=== PATIENT | female | born 1985 | race Caucasian/White ===

== ENCOUNTER 2018-04-05 12:39 | Emergency (ER) | payer OTHER ==
[2018-04-05 12:53] VITALS: BP 130/72; PULSE 60; TEMP 98.6; BMI 21.6
[2018-04-05] MEDS ORDERED: diphenhydrAMINE HCL 25 MG CAPSULE (FP) PO ONE ×2 (13:57→14:00)
--- NOTE | 2018-04-05 13:58 | PDOC ---
History of Present Illness - General Chief Complaint: Edema Stated Complaint: SWOLLEN LIP Time Seen by Provider: 04/05/18 13:09 History Source: Patient - History of Present Illness Initial Comments: 04/05/18 12:59 Patient came to emergency department for evaluation of swelling to her left upper lip. States was out last night at a barbecue, ate multiple foods which were not new to her except for at midnight she had some eggs which she has never had before. States after that time her lips swelled but no other areas. Denies history of herpes, denies any trauma, denies any dental injury or issue. Patient states used ice to the area which did not help resolved. Has taken no medications for relief. Denies shortness of breath, tongue swelling, a difficulty breathing or swallowing. Has no other food ALLERGIES Timing/Duration: unsure Severity: mild, moderate Associated Symptoms: reports: malaise. denies: cough, fever/chills Past History - Travel Traveled outside of the country in the last 30 days: No Close contact w/someone who was outside of country & ill: No - Past Medical History Allergies/Adverse Reactions: Allergies Allergy/AdvReac Type Severity Reaction Status Date / Time No Known Allergies Allergy Verified 04/05/18 13:20 Home Medications: Ambulatory Orders NK [No Known Home Medication] 04/05/18 COPD: No - Surgical History Abdominal Surgery: Yes - Suicide/Smoking/Psychosocial Hx Smoking History: Never smoked Have you smoked in the past 12 months: No Hx Alcohol Use: No Drug/Substance Use Hx: No Substance Use Type: None Review of Systems - Review of Systems Able to Perform ROS?: Yes Is the patient limited Lao proficient: Yes Constitutional: Yes: See HPI, Malaise. No: Symptoms Reported, Fever HEENTM: Yes: Symptoms Reported, See HPI, Nose Congestion, Mouth Swelling. No: Mouth Pain, Dental Problems, Difficulty Swallowing Respiratory: Yes: See HPI. No: Symptoms reported, Cough, Wheezing All Other Systems: Reviewed and Negative *Physical Exam - Vital Signs Last Vital Signs Temp Pulse Resp BP Pulse Ox 98.6 F 60 18 130/72 100 04/05/18 12:48 04/05/18 12:48 04/05/18 12:48 04/05/18 12:48 04/05/18 12:48 - Physical Exam General Appearance: Yes: Nourished, Appropriately Dressed, Apparent Distress HEENT: positive: HERNESTO, TMs Normal, Pharynx Normal, Other (left upper lip with erythema and swelling, no area of trauma/ecchymoses, puncture wound or evidence of insect bite. Is nontender to pressure or palpation. Dentition is intact without swelling abscess or decay to any tooth. Pharynx is clear with no tongue swelling or pharyngeal edema.) Neck: negative: Tender Respiratory/Chest: positive: Lungs Clear, Normal Breath Sounds. negative: Wheezing Gastrointestinal/Abdominal: positive: Soft. 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 Consider humidifier in room at night Steamy showers/seem to face break up mucus Avoid contact with allergens, exposure to pollens, close windows on a windy day Lots of handwashing and good hygiene Continue [id number] medications for symptomatic relief- may use allergic eyedrops for itching I Continue antihistamines daily until pollen season is over; Zyrtec, Claritin, Ethel during the daytime and Benadryl at nighttime as will make sleepy Tylenol or Motrin for fever and pain Followup with private physician in one to 2 days as needed Consider following up with an principal network architect/wet process miller for skin testing and possible allergy shots Return to emergency department for worsened symptoms, fevers, dehydration - Post Discharge Activity Forms/Work/School Notes: Back to Work
== END 2018-04-05 14:09 | disposition home or self-care (01) ==
LOC: JERFT 12:39 → JER 12:39 → JERFT 14:09
DX: T78.1XXA Other adverse food reactions, not elsewhere classified, initial encounter (principal)
CPT/HCPCS: 99281-25

== ENCOUNTER 2019-11-15 15:11 | Emergency (ER) | payer OTHER ==
[2019-11-15 15:25] VITALS: BP 120/69; PULSE 64; TEMP 98.2; BMI 21.6
--- NOTE | 2019-11-15 15:26 | PDOC ---
Rapid Medical Evaluation Medical Evaluation: Allergies Allergy/AdvReac Type Severity Reaction Status Date / Time No Known Allergies Allergy Verified 05/26/18 13:33 I have performed a brief in-person evaluation of this patient. The patient presents with a chief complaint of: CP x 1 week, constant in nature ; +dry cough x 2 days; denies fever, sob, smoking/drug use; denies use of OCPs Pertinent physical exam findings: +reproducible CP, lungs clear I have ordered the following: EKG, CXR The patient will proceed to the ED for further evaluation. 11/15/19 15:22
[2019-11-15] MEDS ORDERED: CYCLOBENZAPRINE HCL 10 MG TABLET (FP) PO ONE (17:39)
[2019-11-15] MEDS ORDERED: DEXAMETHASONE LIQUID 0.5 MG/5 ML PO ONE (17:39)
[2019-11-15] MEDS ORDERED: ALBUTEROL SO4 2.5/IPRATROPIUM 0.5 INH SOL 3 ML VIAL.NEB. NEB ONE ×2 (17:52→17:53)
[2019-11-15] MEDS ORDERED: CYCLOBENZAPRINE HCL 10 MG TABLET (FP) ONE (17:53)
[2019-11-15] MEDS ORDERED: DEXAMETHASONE SOD PHOSPHATE 10 MG/1 ML VIAL ONE (17:53)
--- NOTE | 2019-11-15 18:02 | PDOC ---
History of Present Illness - General Chief Complaint: Respiratory Stated Complaint: COUGH/CHEST PAIN Time Seen by Provider: 11/15/19 15:22 Past History - Past Medical History Allergies/Adverse Reactions: Allergies Allergy/AdvReac Type Severity Reaction Status Date / Time No Known Allergies Allergy Verified 11/15/19 15:26 Home Medications: Ambulatory Orders Amoxicillin/Potassium Clav [Augmentin 875-125 Tablet] 1 each PO BID 10 Days #20 tablet 05/26/18 Albuterol Sulfate Inhaler - [Ventolin HFA Inhaler -] 1 - 2 inh PO Q4H #1 inhaler 11/15/19 Cyclobenzaprine HCl [Flexeril -] 10 mg PO HS #10 tablet 11/15/19 Methylprednisolone [Medrol Dose Reese] 4 mg PO ASDIR #21 tablet 11/15/19 COPD: No DVT: No - Surgical History Abdominal Surgery: Yes - Psycho Social/Smoking Cessation Hx Smoking History: Never smoked Have you smoked in the past 12 months: No Hx Alcohol Use: No Drug/Substance Use Hx: No Substance Use Type: None *Physical Exam - Vital Signs Last Vital Signs Temp Pulse Resp BP Pulse Ox 98.2 F 64 16 120/69 100 11/15/19 15:22 11/15/19 15:22 11/15/19 15:22 11/15/19 15:22 11/15/19 15:22 ED Treatment Course - Medications Given in the ED: ED Medications Discontinued Medications Generic Name Dose Route Start Last Admin Trade Name Freq PRN Reason Stop Dose Admin Albuterol/Ipratropium 1 amp 11/15/19 17:52 11/15/19 17:56 Duoneb - NEB 11/15/19 17:53 1 amp ONCE ONE Administration Cyclobenzaprine HCl 5 mg 11/15/19 17:39 11/15/19 17:56 Flexeril - PO 11/15/19 17:40 5 mg ONCE ONE Administration Dexamethasone 10 mg 11/15/19 17:39 11/15/19 17:56 Decadron Liquid - PO 11/15/19 17:40 10 mg ONCE ONE Administration Discharge - Discharge Information Problems reviewed: Yes Clinical Impression/Diagnosis: Atypical chest pain, Bronchitis Condition: Stable Disposition: HOME - Admission No - Follow up/Referral - Patient Discharge Instructions Patient Printed Discharge Instructions: DI for Acute Bronchitis, DI for Atypical Chest Pain Additional Instructions: You were evaluated for your chest pain today. It is most likely bronchitis/a muscle spasm in your back. Please take the medication as directed. Use the albuterol inhaler every 4 hours to help open up your chest. Follow-up with your primary care doctor within 1 to 2 days for further evaluation and management of your symptoms. Your EKG and chest x-ray were normal today. Return to the ER for worsening chest pain, difficulty breathing, fever or if you have any changes in your symptoms. Hoy te evaluaron para el dolor en el pecho. Lo ms probable es que sea bronquitis/un espasmo muscular en la espalda. Por favor, tome el medicamento florentino se indica. Use el inhalador de albuterol cada 4 horas para ayudar a abrir el pecho. Seguimiento con mccormick mdico de atencin primaria dentro de 1 a 2 hanley para jammie evaluacin y tratamiento adicional de farshad sntomas. Mccormick electrocardiograma y radiografa de trax fueron normales hoy. Regresa a urgencias para empeorar el dolor torcico, dificultad para respirar, fiebre o si tienes algn cambio en los sntomas. Print Language: GUYANESE - Post Discharge Activity Work/Back to School Note: Back to Work
--- NOTE | 2019-11-16 12:58 | EKG ---
Test Reason : Blood Pressure : / mmHG Vent. Rate : 063 BPM Atrial Rate : 063 BPM P-R Int : 120 ms QRS Dur : 080 ms QT Int : 428 ms P-R-T Axes : 052 065 050 degrees QTc Int : 437 ms NORMAL SINUS RHYTHM NORMAL ECG WHEN COMPARED WITH ECG OF 02-AUG-2016 10:06, T WAVE INVERSION NO LONGER EVIDENT IN INFERIOR LEADS Confirmed by MD Ney, Jeremiah ([id number]) on 11/16/2019 12:58:32 PM Referred By: Confirmed By:Jeremiah Brewster MD
== END 2019-11-15 19:02 | disposition home or self-care (01) ==
LOC: JERFT 15:11
PROC: 3E0F7GC Introduction of Other Therapeutic Substance into Respiratory Tract, Via Natural or Artificial Opening (ICD-10-PCS; principal; 2019-11-15)
DX: J20.9 Acute bronchitis, unspecified (principal); R07.9 Chest pain, unspecified
CPT/HCPCS: 71046-TC-FY; 93005; 93010; 94640; 99282-25

== ENCOUNTER 2020-10-12 15:20 | Emergency (ER) | payer OTHER ==
[2020-10-12 16:34] VITALS: BP 126/95; PULSE 100; TEMP 98.7; BMI 23.8
== END 2020-10-12 17:51 | disposition home or self-care (01) ==
LOC: JER 15:20
DX: U07.1 COVID-19 (principal)
CPT/HCPCS: 99283-25; C9803; U0003

== ENCOUNTER 2020-11-07 19:33 | Emergency (ER) | payer OTHER ==
[2020-11-07 19:47] VITALS: BMI 24.7
[2020-11-07] MEDS ORDERED: ASPIRIN 81 MG CHEWABLE TABLETS PO ONE (21:36)
[2020-11-07] MEDS ORDERED: ASPIRIN 81 MG CHEWABLE TABLETS ONE (21:50)
[2020-11-07 22:33] LABS: BASO % 0.6 % (0-2.0); LYMPH % 34.2 % (8-40); MCH 30.5 pg (25.7-33.7); MCHC 33.5 g/dl (32.0-36.0); MEAN CELL VOLUME 91.2 fl (80-96); MEAN PLT VOLUME 11.4 fl (7.5-11.1); NEUT % 58.2 % (42.8-82.8); PLATELET COUNT 149 K/MM3 (134-434); RBC 4.27 M/mm3 (3.60-5.2); RDW 13.8 % (11.6-15.6)
[2020-11-07 22:41] LABS: INR 0.98 (0.83-1.09); PROTHROMBIN TIME (PATIENT) 12.1 SEC (9.7-13.0)
[2020-11-07 22:55] LABS: CHLORIDE 104 mmol/L (98-107); SODIUM 137 mmol/L (136-145)
[2020-11-07 22:56] LABS: CALCIUM 8.3 mg/dL (8.5-10.1)
[2020-11-07 22:57] LABS: ANION GAP 5 MMOL/L (8-16); BLOOD UREA NITROGEN 9.4 mg/dL (7-18); CO2 28 mmol/L (21-32); GLUCOSE,RANDOM 84 mg/dL (74-106); MAGNESIUM 2.1 mg/dL (1.8-2.4)
[2020-11-07 23:00] LABS: CREATININE 0.7 mg/dL (0.55-1.3); SGOT/AST 16 U/L (15-37)
[2020-11-07 23:02] LABS: BILIRUBIN,TOTAL 0.3 mg/dL (0.2-1); TOT PROT 7.6 g/dl (6.4-8.2)
[2020-11-07 23:03] LABS: ALK PHOS 72 U/L (45-117)
[2020-11-07 23:09] LABS: SGPT/ALT 17 U/L (13-61)
[2020-11-08 01:57] VITALS: BP 127/79; PULSE 57; TEMP 98
== END 2020-11-08 01:57 | disposition home or self-care (01) ==
LOC: JER 19:33
DX: R07.89 Other chest pain (principal)
CPT/HCPCS: 36415; 71275-TC; 80053; 82550; 83735; 84484; 84703; 85025; 85610; 85730; 93005; 93010; 99285-25; C9803; U0003

== ENCOUNTER 2023-02-27 07:48 | Emergency (ER) | payer OTHER ==
[2023-02-27 08:00] VITALS: TEMP 98.2; BMI 24.8
[2023-02-27 09:19] LABS: BASO % 0.7 % (0-2.0); EOS % 0.7 % (0-4.5); HEMATOCRIT 38.8 % (32.4-45.2); HEMOGLOBIN 13.2 GM/dL (10.7-15.3); LYMPH % 34.5 % (8-40); MCH 30.3 pg (25.7-33.7); MEAN CELL VOLUME 89.3 fl (80-96); MEAN PLT VOLUME 10.7 fl (7.5-11.1); MONO % 6.2 % (3.8-10.2); NEUT % 57.9 % (42.8-82.8); PLATELET COUNT 205 10^3/uL (134-434); RBC 4.34 M/mm3 (3.60-5.2); RDW 13.8 % (11.6-15.6); URINE APPEARANCE CLEAR; URINE BILIRUBIN NEGATIVE (NEGATIVE); URINE COLOR YELLOW; URINE GLUCOSE (UA) NEGATIVE (NEGATIVE); URINE KETONE NEGATIVE (NEGATIVE); URINE LEUK ESTERASE NEGATIVE (NEGATIVE); URINE NITRITE NEGATIVE (NEGATIVE); URINE PROTEIN NEGATIVE (NEGATIVE); URINE UROBILINOGEN 0.2 mg/dL (0.2-1.0); WHITE BLOOD COUNT 6.1 K/mm3 (4.0-10.0)
[2023-02-27] MEDS ORDERED: ACETAMINOPHEN 1000 MG/100 ML BAG IVPB ONE (09:20)
[2023-02-27] MEDS ORDERED: FAMOTIDINE 20 MG/50 ML IVPB 20 MG/50 ML MG IVPB ONE (09:21)
[2023-02-27 09:28] LABS: HCG,QUALITATIVE URINE Negative; INR 1.04 (0.83-1.09); PROTHROMBIN TIME (PATIENT) 12.1 SEC (9.7-13.0)
[2023-02-27 09:31] LABS: ACTIVATED PTT 29.8 SECONDS (25.2-36.5)
[2023-02-27 09:42] LABS: CHLORIDE 104 mmol/L (98-107); SODIUM 131 mmol/L (136-145)
[2023-02-27 09:46] LABS: ALBUMIN 3.6 g/dl (3.4-5.0); CALCIUM 9.2 mg/dL (8.5-10.1); CO2 26 mmol/L (21-32); GLUCOSE,RANDOM 89 mg/dL (74-106); LIPASE 90 U/L (73-393)
[2023-02-27 09:47] LABS: BLOOD UREA NITROGEN 11.8 mg/dL (7-18)
[2023-02-27 09:49] LABS: CREATININE 0.7 mg/dL (0.55-1.3); SGOT/AST 77 U/L (15-37)
[2023-02-27] MEDS ORDERED: ACETAMINOPHEN INJECTION 100 ML IVPB ONE (09:49)
[2023-02-27 09:51] LABS: BILIRUBIN,TOTAL 0.4 mg/dL (0.2-1); TOT PROT 7.8 g/dl (6.4-8.2)
[2023-02-27] MEDS ORDERED: FAMOTIDINE 10 MG/ML VIAL IVPB ONE (09:51)
[2023-02-27 09:53] LABS: ALK PHOS 59 U/L (45-117); ANION GAP 0 MMOL/L (8-16); SGPT/ALT 24 U/L (13-61)
[2023-02-27] MEDS ORDERED: KETOROLAC TROMETHAMINE 15 MG/ML VIAL IVPUSH ONE (11:43)
[2023-02-27] MEDS ORDERED: KETOROLAC TROMETHAMINE 15 MG/ML VIAL ONE (12:04)
[2023-02-27 12:54] LABS: CALCIUM 9.3 mg/dL (8.5-10.1)
[2023-02-27 12:55] LABS: BLOOD UREA NITROGEN 11.2 mg/dL (7-18)
[2023-02-27 12:58] LABS: CREATININE 0.7 mg/dL (0.55-1.3)
[2023-02-27 13:18] VITALS: BP 115/74; PULSE 63; RESP 18
== END 2023-02-27 14:19 | disposition home or self-care (01) ==
LOC: JER 07:48
PROC: 3E033GC Introduction of Other Therapeutic Substance into Peripheral Vein, Percutaneous Approach (ICD-10-PCS; principal; 2023-02-27)
DX: N83.01 Follicular cyst of right ovary (principal); N83.02 Follicular cyst of left ovary; R10.31 Right lower quadrant pain; R07.9 Chest pain, unspecified; Z20.822 Contact with and (suspected) exposure to COVID-19
CPT/HCPCS: 0241U-QW; 36415; 71046-TC-FY; 74177-TC; 76830-TC; 80048; 80053; 81003; 83690; 84484; 84703; 85025; 85610; 85730; 87081; 87086; 93005; 93010; 93971-TC; 99285-25; Q9967

== ENCOUNTER 2023-03-03 10:19 | Emergency (ER) | payer OTHER ==
[2023-03-03 11:30] VITALS: TEMP 98.2; BMI 24.7
[2023-03-03] MEDS ORDERED: SODIUM CHLORIDE 0.9% 500 ML INFUS.BAG IV ONE (11:53)
[2023-03-03] MEDS ORDERED: ACETAMINOPHEN 1000 MG/100 ML BAG IVPB ONE (11:53)
[2023-03-03] MEDS ORDERED: ACETAMINOPHEN INJECTION 100 ML IVPB ONE (12:08)
[2023-03-03 12:49] LABS: PH,URINE 5.5 (5.0-8.0); URINE APPEARANCE CLEAR; URINE BILIRUBIN NEGATIVE (NEGATIVE); URINE COLOR YELLOW; URINE GLUCOSE (UA) NEGATIVE (NEGATIVE); URINE KETONE NEGATIVE (NEGATIVE); URINE LEUK ESTERASE NEGATIVE (NEGATIVE); URINE NITRITE NEGATIVE (NEGATIVE); URINE PROTEIN NEGATIVE (NEGATIVE); URINE UROBILINOGEN 0.2 mg/dL (0.2-1.0)
[2023-03-03 12:53] LABS: HCG,QUALITATIVE URINE Negative
[2023-03-03 12:57] LABS: BASO % 0.3 % (0-2.0); EOS % 0.6 % (0-4.5); HEMATOCRIT 39.7 % (32.4-45.2); HEMOGLOBIN 13.7 GM/dL (10.7-15.3); LYMPH % 31.7 % (8-40); MCH 30.9 pg (25.7-33.7); MCHC 34.4 g/dl (32.0-36.0); MEAN CELL VOLUME 89.7 fl (80-96); MEAN PLT VOLUME 11.3 fl (7.5-11.1); MONO % 6.6 % (3.8-10.2); NEUT % 60.8 % (42.8-82.8); PLATELET COUNT 178 10^3/uL (134-434); RBC 4.43 M/mm3 (3.60-5.2); RDW 13.3 % (11.6-15.6); WHITE BLOOD COUNT 5.9 K/mm3 (4.0-10.0)
[2023-03-03 13:21] LABS: ALBUMIN 4.1 g/dl (3.4-5.0); BLOOD UREA NITROGEN 11.7 mg/dL (7-18); CALCIUM 9.8 mg/dL (8.5-10.1)
[2023-03-03 13:24] LABS: CREATININE 0.7 mg/dL (0.55-1.3)
[2023-03-03 13:26] LABS: BILIRUBIN,TOTAL 0.6 mg/dL (0.2-1)
[2023-03-03] MEDS ORDERED: KETOROLAC TROMETHAMINE 30 MG/1 ML VIAL IVPUSH ONE (14:14)
[2023-03-03] MEDS ORDERED: KETOROLAC TROMETHAMINE 30 MG/1 ML VIAL ONE (14:36)
[2023-03-03 17:27] VITALS: BP 128/60; PULSE 64; RESP 18
== END 2023-03-03 17:26 | disposition home or self-care (01) ==
LOC: JER 10:19
PROC: 3E0333Z Introduction of Anti-inflammatory into Peripheral Vein, Percutaneous Approach (ICD-10-PCS; principal; 2023-03-03)
PROC: 3E033GC Introduction of Other Therapeutic Substance into Peripheral Vein, Percutaneous Approach (ICD-10-PCS; 2023-03-03)
DX: M54.50 Low back pain, unspecified (principal); R10.32 Left lower quadrant pain
CPT/HCPCS: 36415; 74176-TC; 80053; 81003; 84703; 85025; 87086; 99285-25

== ENCOUNTER 2024-01-01 06:38 | Emergency (ER) | payer OTHER ==
[2024-01-01 06:45] VITALS: BMI 22.8
[2024-01-01 06:46] VITALS: PULSE 88; RESP 18; TEMP 98.4
[2024-01-01] MEDS ORDERED: ACETAMINOPHEN INJECTION 100 ML IVPB ONE (07:39)
[2024-01-01] MEDS ORDERED: METOCLOPRAMIDE HCL INJECTION 10 MG/2 ML VIAL ONE (07:39)
[2024-01-01] MEDS ORDERED: FAMOTIDINE 20 MG/50 ML IVPB 20 MG/50 ML MG IVPB ONE (07:39)
[2024-01-01] MEDS: FAMOTIDINE 20 MG/50 ML IVPB 20 MG/50 ML MG IVPB ONE (07:57)
[2024-01-01] MEDS: ACETAMINOPHEN 1000 MG/100 ML BAG IVPB ONE (07:57)
[2024-01-01] MEDS: SODIUM CHLORIDE 0.9% 500 ML INFUS.BAG IV ONE (07:57)
[2024-01-01] MEDS: METOCLOPRAMIDE HCL INJECTION 10 MG/2 ML VIAL IVPB ONE (07:57)
[2024-01-01 08:25] LABS: PH,URINE 5.5 (5.0-8.0); URINE APPEARANCE CLEAR; URINE BILIRUBIN NEGATIVE (NEGATIVE); URINE COLOR YELLOW; URINE GLUCOSE (UA) NEGATIVE (NEGATIVE); URINE KETONE NEGATIVE (NEGATIVE); URINE LEUK ESTERASE NEGATIVE (NEGATIVE); URINE NITRITE NEGATIVE (NEGATIVE); URINE PROTEIN NEGATIVE (NEGATIVE)
[2024-01-01 08:31] LABS: BASO % 0.1 % (0-2.0); EOS % 0.5 % (0-4.5); HEMATOCRIT 41.7 % (32.4-45.2); HEMOGLOBIN 14.4 GM/dL (10.7-15.3); LYMPH % 8.2 % (8-40); MCH 31.1 pg (25.7-33.7); MCHC 34.6 g/dl (32.0-36.0); MEAN CELL VOLUME 89.7 fl (80-96); MEAN PLT VOLUME 10.1 fl (7.5-11.1); MONO % 4.6 % (3.8-10.2); NEUT % 86.6 % (42.8-82.8); PLATELET COUNT 176 10^3/uL (134-434); RBC 4.65 M/mm3 (3.60-5.2); RDW 13.6 % (11.6-15.6); WHITE BLOOD COUNT 9.2 K/mm3 (4.0-10.0)
[2024-01-01 08:49] LABS: POTASSIUM 4.1 mmol/L (3.5-5.1)
[2024-01-01 08:51] LABS: ALBUMIN 3.8 g/dl (3.4-5.0); CALCIUM 8.7 mg/dL (8.5-10.1)
[2024-01-01 08:52] LABS: BLOOD UREA NITROGEN 15.3 mg/dL (7-18)
[2024-01-01 08:54] LABS: CREATININE 0.8 mg/dL (0.55-1.3)
[2024-01-01 08:56] LABS: BILIRUBIN,TOTAL 0.8 mg/dL (0.2-1); TOT PROT 7.8 g/dl (6.4-8.2)
[2024-01-01 10:51] VITALS: BP 99/66
[2024-01-01 15:06] LABS: MAGNESIUM 2.1 mg/dL (1.8-2.4)
== END 2024-01-01 10:43 | disposition home or self-care (01) ==
LOC: JER 06:38
PROC: 3E033GC Introduction of Other Therapeutic Substance into Peripheral Vein, Percutaneous Approach (ICD-10-PCS; principal; 2024-01-01)
PROC: 3E033GC Introduction of Other Therapeutic Substance into Peripheral Vein, Percutaneous Approach (ICD-10-PCS; 2024-01-01)
PROC: 3E033GC Introduction of Other Therapeutic Substance into Peripheral Vein, Percutaneous Approach (ICD-10-PCS; 2024-01-01)
DX: R10.84 Generalized abdominal pain (principal); R11.2 Nausea with vomiting, unspecified; R19.7 Diarrhea, unspecified; R68.83 Chills (without fever)
CPT/HCPCS: 36415; 74177-TC; 80053; 81003; 83690; 83735; 84484; 84703; 85025; 87086; 93005; 93010; 99285-25; J0131; Q9967